=== PATIENT | female | born 1940 | race Caucasian/White ===

== ENCOUNTER → 2020-11-17 09:29 | Outpatient (BNVA) | payer MEDICARE, SELFPAY | PROVIDERS: PCP Internal Medicine; Visit Provider Urology | DX: N30.10 Interstitial cystitis (chronic) without hematuria (principal) | CPT/HCPCS: 99212 ==

== ENCOUNTER → 2021-11-16 08:26 | Outpatient (BNVA) | payer MEDICARE, SELFPAY | PROVIDERS: PCP Internal Medicine; Visit Provider Urology | DX: N30.10 Interstitial cystitis (chronic) without hematuria (principal) | CPT/HCPCS: 99212 ==

== ENCOUNTER 2022-11-22 09:23 | Outpatient (AMB) | payer MEDICARE, SELFPAY ==
--- NOTE | 2022-11-22 09:40 | MHC.OFFVIS ---
Intake Intake Visit Reasons: 1 year follow up Interstitial cystitis Intake Note: Patient presents today for a 1 year follow-up Sand Screener Required: No Accompanied by: Self / Same As Patient Allergies codeine Allergy (Unknown, Verified 11/22/22 09:48) Unknown Sulfa (Sulfonamide Antibiotics) Allergy (Unknown, Verified 11/22/22 09:48) sick to stomach latex Allergy (Unknown, Uncoded 11/22/22 09:48) Unknown Medication List - Last Reconciled 11/22/22 by Giuliano Soto MD albuterol sulfate 90 mcg/actuation 0 mcg inhalation cyclosporine 0.09% (Cequa) 1 drp ophthalmic (eye) BID ferrous sulfate 324 mg PO BID gabapentin 300 mg PO ONCE lisinopril 2.5 mg PO DAILY lorazepam 0.5 mg PO DAILY PRN pentosan polysulfate sodium (Elmiron) 100 mg PO ONCE 90 days sertraline 100 mg PO DAILY HPI HPI Comments History of Present Illness Details Mily is a pleasant female. 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 to 1 tab q.d. Review again in 12 months [facility] Medical History Bladder prolapse Interstitial cystitis Rectocele Surgical History History of surgery Social History Patient Tobacco Use Status: Never used Tobacco Review of Systems Const Denies chills and Denies fever(s) Card Reports no additional complaints and Denies syncope Resp Denies cough GI Denies abdominal pain and Denies heartburn Reports as per HPI and Denies change in libido Neuro Denies syncope Psych Denies change in libido Endo Denies change in libido Physical Exam Const General: cooperative, healthy appearing, comfortable and no acute distress Orientation/consciousness: patient oriented x3 HEENT Face and sinus: Yes normal facial exam Mouth: moist mucous membranes Neck Neck: Yes normal visual inspection, Yes full ROM and Yes trachea midline Chest Chest palpation & inspection: normal inspection of the chest Resp Effort & Inspection: normal respiratory effort, able to speak in complete sentences and no respiratory distress GI Inspection: Yes normal to inspection Back/Spine/Pelvis Cervical Spine: normal cervical lordosis Thoracic/Lumbar Spine: thoracic and lumbar spine normal to inspection Skin General skin exam: no rashes or lesions noted Neuro General: patient oriented x3, gait normal, tone normal and moves all extremities Extrem General: Yes normal to inspection and Yes capillary refill normal Results AMB Urinalysis, Automated UA Leukoctes 0 Renuka/uL Last Edit by Alicia Pepe Rodrigo on 11/22/22 09:50 UA Nitrite Negative Last Edit by Alicia Pepe [facility] on 11/22/22 09:50 UA Urobilinogen 0 mg/dL Last Edit by Alicia Pepe [facility] on 11/22/22 09:50 UA Protein 0.2 mg/dL Last Edit by Alicia Pepe [facility] on 11/22/22 09:50 UA pH 6.0 Last Edit by Alicia Pepe [facility] on 11/22/22 09:50 UA Blood 0 Major/uL Last Edit by Alicia Pepe [facility] on 11/22/22 09:50 UA Specific [place] 1.030 Last Edit by Alicia Pepe Rodrigo on 11/22/22 09:50 UA Ketone Negative Last Edit by Alicia Pepe [facility] on 11/22/22 09:50 UA Bilirubin 0 mg/dL Last Edit by Alicia Pepe [facility] on 11/22/22 09:50 UA Glucose 0 mg/dL Last Edit by Alicia Pepe [facility] on 11/22/22 09:50 Assessment & Plan Assessment & Plan (1) Interstitial cystitis: Code(s): N30.10 - Interstitial cystitis (chronic) without hematuria Plan 12 month follow-up Orders: Orders AMB Urinalysis Automated Today Z13.9 - Encounter for screening, unspecified Lipid Panel 365 Days E11.9 - Type 2 diabetes mellitus without complications, N30.10 - Interstitial cystitis (chronic) without hematuria Patient Instructions: Imaging studies, laboratory and physical exam results were discussed and reviewed in detail. No major barriers to patient understanding were identified. An opportunity to ask questions regarding the treatment plan was provided. All questions were answered. The patient expressed understanding and agreement with the above treatment plan. The patient is aware they should contact our office by phone for worsening of their current condition or the appearance of new urologic symptoms. Compliance is encouraged with any medications and followup testing that is ordered. It is a privilege to participate in the urologic care of your patient. If you have any questions or concerns regarding treatment for the above conditions, or other urologic issues, please do not hesitate to contact me. The office telephone contact is [phone]. This note is constructed using voice recognition software. While every effort has been made to ensure accuracy tip bander errors may have been included. Yours sincerely, Dr Giuliano Soto MD, [facility] - Urology Providers of Expert, Compassionate Care for the Genitourinary System Coding Level of Care Code Est Pt Level 4 (20787) Diagnoses Interstitial cystitis N30.10
== END 2022-11-22 10:06 | disposition home or self-care (01) ==
PROVIDERS: PCP Internal Medicine; Visit Provider Urology
DX: N30.10 Interstitial cystitis (chronic) without hematuria (principal); Z13.89 Encounter for screening for other disorder
CPT/HCPCS: 99213

== ENCOUNTER → 2022-11-22 09:23 | Outpatient (BNVA) | payer MEDICARE, SELFPAY | PROVIDERS: Visit Provider Urology | DX: N30.10 Interstitial cystitis (chronic) without hematuria (principal) | CPT/HCPCS: 81003; 99212 ==

== ENCOUNTER 2023-11-21 09:36 | Outpatient (AMB) | payer MEDICARE, SELFPAY ==
--- NOTE | 2023-11-21 11:11 | A.OFFVIS_ITS ---
Intake Visit Reasons: 1Y Follow Up- Interstitial cystitis Allergies codeine Allergy (Unknown, Verified 11/22/22 09:48) Unknown Sulfa (Sulfonamide Antibiotics) Allergy (Unknown, Verified 11/22/22 09:48) sick to stomach latex Allergy (Unknown, Uncoded 11/22/22 09:48) Unknown Medication List - Last Reconciled 11/21/23 by Giuliano Soto MD albuterol sulfate 90 mcg/actuation 0 mcg inhalation cyclosporine 0.09% (Cequa) 1 drp ophthalmic (eye) BID ferrous sulfate 324 mg PO BID gabapentin 300 mg PO ONCE lisinopril 2.5 mg PO DAILY lorazepam 0.5 mg PO DAILY PRN pentosan polysulfate sodium (Elmiron) 100 mg PO ONCE 90 days sertraline 100 mg PO DAILY HPI Comments Details: Mily is a pleasant female. 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 to 1 tab q.d. Review again in 12 months [facility] Medical History Bladder prolapse Interstitial cystitis Rectocele Surgical History History of surgery Social History Patient Tobacco Use Status: Never used Tobacco Review of Systems Const All systems reviewed & are unremarkable except as noted in HPI and below Reports no additional complaints Resp Reports no additional complaints GI Reports no additional complaints Reports as per HPI Musc Reports no additional complaints Physical Exam Telemedicine evaluation Appropriate responses Regular breathing rate and rhythm HEENT Head: Yes normal to inspection Ears: hearing grossly normal bilaterally Eyes General: appearance normal, both eyes and all related structures Neck Neck: Yes normal visual inspection Chest Chest palpation & inspection: normal inspection of the chest Resp Effort & Inspection: normal respiratory effort and able to speak in complete sentences [facility] Location of provider rendering services: practice address Location of patient: address on file Patient Identification confirmed using: Name, : Yes Telehealth method: video Patient verbally consented to treatment: Yes Patient verbally consented to billing insurance company: Yes Patient informed of any privacy concerns related to visit: Yes Minutes spent on Phone/Video with Pt.: 15 Assessment & Plan Assessment & Plan (1) Interstitial cystitis: Code(s): N30.10 - Interstitial cystitis (chronic) without hematuria Category: Medical Plan Twelve month follow-up Orders: Orders Liver Panel 1 Year N30.10 - Interstitial cystitis (chronic) without hematuria Patient Instructions: Imaging studies, laboratory and physical exam results were discussed and reviewed in detail. No major barriers to patient understanding were identified. An opportunity to ask questions regarding the treatment plan was provided. All questions were answered. The patient expressed understanding and agreement with the above treatment plan. The patient is aware they should contact our office by phone for worsening of their current condition or the appearance of new urologic symptoms. Compliance is encouraged with any medications and followup testing that is ordered. It is a privilege to participate in the urologic care of your patient. If you have any questions or concerns regarding treatment for the above conditions, or other urologic issues, please do not hesitate to contact me. The office telephone contact is [phone]. This note is constructed using voice recognition software. While every effort has been made to ensure accuracy electromechanical equipment assembler errors may have been included. Yours sincerely, Dr Giuliano Soto MD, [facility] - Urology Providers of Expert, Compassionate Care for the Genitourinary System Coding Level of Care Code Tele Est Pt Level 4 (30541) Diagnoses Interstitial cystitis N30.10
== END 2023-11-21 16:38 | disposition home or self-care (01) ==
PROVIDERS: PCP Internal Medicine; Visit Provider Urology
DX: N30.10 Interstitial cystitis (chronic) without hematuria (principal)
CPT/HCPCS: 99214

== ENCOUNTER → 2023-11-21 09:36 | Outpatient (BNVA) | payer MEDICARE, SELFPAY | PROVIDERS: PCP Internal Medicine; Visit Provider Urology ==

== ENCOUNTER 2024-11-19 10:00 | Outpatient (AMB) | payer MEDICARE, SELFPAY ==
--- NOTE | 2024-11-19 10:01 | A.OFFVIS_ITS ---
Intake Visit Reasons: 1y follow up(call home line) Intake Note: Patient presents for: telehealth 1yr follow up urology medications: none blood thinners: none labs done 11/10/24: liver panel Certified Nuclear Medicine Technologist Required: No Accompanied by: Self / Same As Patient Allergies codeine Allergy (Unknown, Verified 11/19/24 10:02) Unknown Sulfa (Sulfonamide Antibiotics) Allergy (Unknown, Verified 11/19/24 10:02) sick to stomach latex Allergy (Unknown, Uncoded 11/19/24 10:02) Unknown HPI Comments Details: Mily is a pleasant female. 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 to 1 tab q.d. Review again in 12 months [facility] Medical History Bladder prolapse Interstitial cystitis Rectocele Surgical History History of surgery Social History Patient Tobacco Use Status: Never used Tobacco Review of Systems Const All systems reviewed & are unremarkable except as noted in HPI and below Reports no additional complaints Resp Reports no additional complaints GI Reports no additional complaints Reports as per HPI Musc Reports no additional complaints Physical Exam Telemedicine evaluation Appropriate responses Regular breathing rate and rhythm HEENT Head: Yes normal to inspection Ears: hearing grossly normal bilaterally Eyes General: appearance normal, both eyes and all related structures Neck Neck: Yes normal visual inspection Chest Chest palpation & inspection: normal inspection of the chest Resp Effort & Inspection: normal respiratory effort and able to speak in complete sentences Telehealth Telehealth Telehealth Platform: [employer] Location of provider rendering services: practice address Location of patient: address on file Patient Identification confirmed using: Name, : Yes Telehealth method: video Patient verbally consented to treatment: Yes Patient verbally consented to billing insurance company: Yes Patient informed of any privacy concerns related to visit: Yes Assessment & Plan Assessment & Plan (1) Interstitial cystitis: Code(s): N30.10 - Interstitial cystitis (chronic) without hematuria Category: Medical Plan 12m f/u tele Medications: Refilled pentosan polysulfate sodium (Elmiron) 100 mg PO ONCE 90 caps 3RF 90 days N30.10 - Interstitial cystitis (chronic) without hematuria Patient Instructions: This note is constructed using voice recognition software. While every effort has been made to ensure accuracy roads and parking lots sweeper operator errors may have been included. Imaging studies, laboratory and physical exam results were discussed and reviewed in detail. No major barriers to patient understanding were identified. An opportunity to ask questions regarding the treatment plan was provided. All questions were answered. The patient expressed understanding and agreement with the above treatment plan. The patient is aware they should contact our office by phone for worsening of their current condition or the appearance of new urologic symptoms. Compliance is encouraged with any medications and followup testing that is ordered. It is a privilege to participate in the urologic care of your patient. If you have any questions or concerns regarding treatment for the above conditions, or other urologic issues, please do not hesitate to contact me. The office telephone contact is [phone]. Sincerely, Dr Giuliano Soto MD, [facility] - Urology Compassionate Specialist Care for the Genitourinary System Coding Level of Care Code Tele Est Pt Level 4 (42859) Complex EM visit Add On G2211 Diagnoses Interstitial cystitis N30.10
== END 2024-11-19 10:34 | disposition home or self-care (01) ==
LOC: HO.HUSH 10:00
PROVIDERS: PCP Internal Medicine; Visit Provider Urology
DX: N30.10 Interstitial cystitis (chronic) without hematuria (principal)
CPT/HCPCS: 99214; G2211